=== PATIENT | female | born 1950 | race Caucasian/White ===

== ENCOUNTER 2020-04-13 11:36 | Day surgery (SDC) | payer MEDICARE ==
[~2020-04-13] VITALS: Ht 162.6 cm; Wt 80.9 kg
[2020-04-13] MEDS ORDERED: LORA-445 PO (11:59)
[2020-04-13] MEDS ORDERED: DILT360C32 PO (11:59)
[2020-04-13] MEDS ORDERED: LEVO112T2 PO (11:59)
[2020-04-13] MEDS ORDERED: METO-93 PO (11:59)
[2020-04-13] MEDS ORDERED: AMIT50TA PO (11:59)
[2020-04-13] MEDS ORDERED: ESCI20TA PO (11:59)
[2020-04-13] MEDS ORDERED: APIX5TAB PO (11:59)
[2020-04-13] MEDS ORDERED: EZET10TA70 PO (11:59)
[2020-04-13] MEDS ORDERED: EMPA25TA PO (11:59)
[2020-04-13 12:10] VITALS: BP 124/77
[2020-04-13] MEDS ORDERED: PROPOFOL 10 MG/ML, 20ML ONE (13:10)
[2020-04-13 13:56] LABS: BASOPHILS % (AUTO) 1 % (0-1); EOSINOPHILS % (AUTO) 5 % (1-7); LYMPHOCYTES % (AUTO) 31 % (22-44); MEAN CORPUSCULAR HEMOGLOBIN 31.5 pg (27.0-34.8); MEAN CORPUSCULAR HGB CONC 32.5 g/dL (32.4-35.8); MEAN PLATELET VOLUME 8.1 fL (7.4-10.4); MONOCYTES % (AUTO) 9 % (2-9); NEUTROPHILS % (AUTO) 54 % (42-75); PLATELET COUNT 372 x10^3/uL (130-400); RED BLOOD COUNT 4.41 x10^6/uL (3.82-5.3); RED CELL DISTRIBUTION WIDTH 12.8 % (9.6-15.2)
[2020-04-13 14:02] LABS: ANION GAP 8 mmol/L (5-15); CHLORIDE 110 mmol/L (98-107)
[2020-04-13 14:06] LABS: MD NO
== END 2020-04-13 14:28 | disposition home or self-care (01) ==
LOC: CACL 11:36
PROVIDERS: ATTEND Internal Medicine Cardiovascular Disease
DX: I48.92 Unspecified atrial flutter (principal); I48.91 Unspecified atrial fibrillation; I10 Essential (primary) hypertension; E11.9 Type 2 diabetes mellitus without complications; Z79.01 Long term (current) use of anticoagulants; Z79.84 Long term (current) use of oral hypoglycemic drugs; Z79.890 Hormone replacement therapy; Z79.899 Other long term (current) drug therapy; Z88.2 Allergy status to sulfonamides; Z88.5 Allergy status to narcotic agent
CPT/HCPCS: 36415; 71046; 80048; 85025; 92960; 93005; J2704